=== PATIENT | male | born 1965 | race African-American/Black ===

== ENCOUNTER 2021-12-08 15:58 | Emergency (ER) | payer MEDICARE, MEDICAID ==
[~2021-12-08] VITALS: Ht 172.7 cm; Wt 100.0 kg
[2021-12-08] MEDS ORDERED: KETOROLAC 30MG/ML VIAL IV STA (16:43)
[2021-12-08] MEDS ORDERED: ONDANSETRON HCL 4MG/2ML INJ IV STA (16:43)
[2021-12-08] MEDS ORDERED: MORPHINE SULFATE 4 MG/ML CPJ (NOT FOR IM USE) IV STA (16:43)
[2021-12-08] MEDS ORDERED: SODIUM CHLORIDE 0.9% 1,000 ML IV ONE (16:45)
[2021-12-08] MEDS ORDERED: KETOROLAC 15MG/ML VIAL IV ONE (19:00)
[2021-12-08 20:00] LABS: CLARITY URINE CLEAR (CLEAR); COLOR URINE YELLOW (YELLOW); KETONES URINE 1+ (NEGATIVE); LEUKOCYTE ESTERASE URINE NEGATIVE (NEGATIVE); NITRITE URINE NEGATIVE (NEGATIVE); OCCULT BLOOD URINE NEGATIVE (NEGATIVE); PH URINE 6.5 (4.5-8.0); PROTEIN URINE TRACE (NEGATIVE); SPECIFIC GRAVITY URINE 1.023 (1.005-1.030)
[2021-12-08 20:56] LABS: BASOPHILS % 0.8 % (0.0-2.0); EOSINOPHILS % 0.4 % (0.0-5.0); HEMATOCRIT. 41.2 % (42.0-52.0); HEMOGLOBIN. 14.1 g/dL (14.0-18.0); LYMPHOCYTES % 18.1 % (20.0-50.0); MEAN CORPUSCULAR HEMOGLOBIN 32.3 pg (28.0-32.0); MEAN CORPUSCULAR VOLUME 93.9 fL (80.0-94.0); MEAN PLATELET VOLUME 8.5 fl (7.4-10.4); MONOCYTES % 9.8 % (2.0-8.0); NEUTROPHILS % 70.9 % (40.0-76.0); PLATELET 198 x1000/uL (130-400); RED BLOOD CELL COUNT 4.38 mill/uL (4.7-6.1); RED CELL DISTRIBUTION WIDTH 13.7 % (11.6-14.6)
[2021-12-08 20:58] LABS: CHLORIDE 104 mEq/L (98-107)
[2021-12-08] MEDS ORDERED: IBUP-2028 MT (21:58)
[2021-12-08] MEDS ORDERED: CYCL10TA21 MT (21:58)
[2021-12-08] MEDS ORDERED: POTASSIUM CHLORIDE 20MEQ TABLET SR PO ONE (22:00)
[2021-12-08 22:47] VITALS: BP 128/77
== END 2021-12-08 22:47 | disposition home or self-care (01) ==
LOC: ER 15:58
DX: M54.50 Low back pain, unspecified (principal); R10.9 Unspecified abdominal pain; I10 Essential (primary) hypertension; Z90.49 Acquired absence of other specified parts of digestive tract
CPT/HCPCS: 36415; 72148; 74176; 80053; 81003; 83690; 85025; 96361; 96374; 96375; 96376; 99284; J1885; J2270; J2405; J7030

== ENCOUNTER 2023-02-28 14:10 | Emergency (ER) | payer MEDICARE, MEDICAID ==
[~2023-02-28] VITALS: Ht 172.7 cm; Wt 95.3 kg
[~2023-02-28 14:10] MED LIST: CYCL10TA21 MT; IBUP-2028 MT
[2023-02-28 14:22] VITALS: BP 146/58; PULSE 79; RESP 20; TEMP 98.6; O2SAT 98
== END 2023-02-28 15:00 | disposition left against medical advice (07) ==
LOC: ER 14:28
DX: R42 Dizziness and giddiness (principal)
CPT/HCPCS: 93005; 99283

== ENCOUNTER 2024-02-17 22:56 | Emergency (ER) | payer MEDICARE, MEDICAID ==
[~2024-02-17] VITALS: Ht 175.3 cm; Wt 96.0 kg
[2024-02-17 23:26] VITALS: O2SAT 100
[2024-02-18 00:02] LABS: CLARITY URINE CLEAR (CLEAR); COLOR URINE YELLOW (YELLOW); GLUCOSE URINE NEGATIVE (NEGATIVE); KETONES URINE NEGATIVE (NEGATIVE); LEUKOCYTE ESTERASE URINE NEGATIVE (NEGATIVE); NITRITE URINE NEGATIVE (NEGATIVE); OCCULT BLOOD URINE NEGATIVE (NEGATIVE); PROTEIN URINE NEGATIVE (NEGATIVE); SPECIFIC GRAVITY URINE 1.009 (1.005-1.030); UROBILINOGEN URINE 0.2 E.U./dL (0.2-1.0)
[2024-02-18] MEDS: KETOROLAC 30MG/ML VIAL IM ONE (02:30)
[2024-02-18] MEDS ORDERED: IBUP-2028 MT (02:53)
[2024-02-18 03:16] VITALS: BP 142/68; PULSE 77; RESP 16; O2SAT 100
== END 2024-02-18 03:18 | disposition home or self-care (01) ==
LOC: EDBD 22:56 → ER 22:56
DX: R10.9 Unspecified abdominal pain (principal)
CPT/HCPCS: 81003; 99283; 96372; J1885; Z7610